=== PATIENT | female | born 1995 | race Two or more races ===

== ENCOUNTER 2021-09-26 21:19 | Emergency (ER) | payer OTHER ==
[~2021-09-26] VITALS: Ht 167.6 cm; Wt 85.7 kg
[2021-09-26] MEDS ORDERED: ZOFRAN8 MG PO (21:27)
[2021-09-26] MEDS ORDERED: PRENA1 CHEW TA1.4 MG PO (21:27)
== END 2021-09-26 23:49 | disposition home or self-care (01) ==
LOC: ER 21:19
DX: J06.9 Acute upper respiratory infection, unspecified (principal); Z20.822 Contact with and (suspected) exposure to COVID-19

== ENCOUNTER 2022-01-27 09:30 | Outpatient (CLI) | payer OTHER ==
[~2022-01-27 09:30] MED LIST: PRENA1 CHEW TA1.4 MG PO; ZOFRAN8 MG PO
== END 2022-01-27 14:09 | disposition home or self-care (01) ==
LOC: OBS/DEL 09:30
PROVIDERS: ATTEND Specialist
DX: O36.5930 Maternal care for other known or suspected poor fetal growth, third trimester, not applicable or unspecified (principal); O26.893 Other specified pregnancy related conditions, third trimester; O36.8130 Decreased fetal movements, third trimester, not applicable or unspecified; O26.843 Uterine size-date discrepancy, third trimester; Z3A.32 32 weeks gestation of pregnancy

== ENCOUNTER 2024-04-07 10:00 | Inpatient (IN) | payer OTHER ==
[~2024-04-07] VITALS: Ht 167.6 cm; Wt 2.3 kg
[~2024-04-07 10:00] MED LIST changes: +IRON240 MG PO
[2024-04-07 10:46] LABS: HEMATOCRIT 34.2 % (36.0-45.00); HEMOGLOBIN 11.3 g/dL (12.0-15.00); MEAN CELL VOLUME 88.9 fL (80.00-100.00); MEAN CORPUSCULAR HEMOGLOBIN 29.4 pg (27.00-32.0); MEAN CORPUSCULAR HGB CONC 33.1 g/dl (32.0-36.0); PLATELET COUNT 181 K/uL (150-450); RED BLOOD COUNT 3.85 M/uL (4.00-6.00); RED CELL DISTRIBUTION WIDTH 14.7 % (11.5-14.5)
[2024-04-07 10:52] LABS: URINE APPEARANCE Cloudy; URINE BILIRRUBIN Negative (NEGATIVE); URINE BLOOD Negative; URINE COLOR Yellow; URINE GLUCOSE Negative (NEGATIVE); URINE KETONE Negative (NEGATIVE); URINE LEUKOCYTE Large; URINE NITRATE Negative; URINE PROTEIN Negative (NEGATIVE); URINE UROBILINOGEN 0.2 E.U./dl
[2024-04-07 10:56] LABS: URINE BACTERIA 5418.5 uL (0.0-1933); URINE RBC 2.2 uL (0.0-20.8); URINE WBC 70.1 uL (0.0-23.2)
[2024-04-07 11:07] LABS: URINE CAST 0.44 uL (0.0-1.40)
[2024-04-07 11:08] LABS: URINE CRYSTALS FEW /HPF
[2024-04-07 11:12] LABS: INR 0.94; PARTIAL THROMBOPLASTIN TIME 27.5 SECONDS (22.0-34.0); PROTHROMBIN TIME 10.3 SECONDS (9.0-11.5)
[2024-04-07 11:53] LABS: ALBUMIN 2.9 gm/dL (3.4-5.0); BILIRUBIN TOTAL 0.31 mg/dL (0.3-1.2); CALCIUM 9.4 mg/dL (8.5-10.1); CREATININE SERUM 0.51 mg/dL (0.55-1.02); GFR 143.59; GLOBULINA 3.9 G/DL (2.4-3.5); POTASSIUM 3.92 mEq/L (3.5-5.1); TOTAL PROTEIN 6.8 gm/dL (6.4-8.2)
[2024-04-11 13:28] VITALS: BP 120/78
[2024-04-11] MEDS ORDERED: CEFAZOLIN SODIUM 1,000 MG VIAL IV ONE (22:15)
[2024-04-11] MEDS ORDERED: MORPHINE SULFATE 4 MG/ML VIAL IV ONE ×2 (22:20→22:50)
[2024-04-11] MEDS ORDERED: KETOROLAC TROMETHAMINE 60 MG VIAL IM ONE (23:45)
[2024-04-11] MEDS ORDERED: MEPERIDINE HCL/PF 50 MG/ML VIAL IV SCH (23:45)
[2024-04-11] MEDS ORDERED: PROMETHAZINE HCL 25 MG/ML AMPUL IV SCH (23:45)
[2024-04-12 02:12] LABS: HEMATOCRIT 35.4 % (36.0-45.00); HEMOGLOBIN 11.7 g/dL (12.0-15.00); MEAN CELL VOLUME 88.1 fL (80.00-100.00); MEAN CORPUSCULAR HEMOGLOBIN 29.2 pg (27.00-32.0); MEAN CORPUSCULAR HGB CONC 33.2 g/dl (32.0-36.0); PLATELET COUNT 179 K/uL (150-450); RED BLOOD COUNT 4.01 M/uL (4.00-6.00); RED CELL DISTRIBUTION WIDTH 14.7 % (11.5-14.5)
[2024-04-12 02:20] VITALS: BP 129/80
[2024-04-12] MEDS ORDERED: OxyCODONE HCL/APAP UD (PERCOCET) PO SCH ×2 (07:00→13:00)
[2024-04-12] MEDS ORDERED: FF) RHO(D) IMMUNE GLOBULIN (POM) IM ONE (08:00)
[2024-04-12] MEDS ORDERED: SIMETHICONE 125 MG CAPSULE PO SCH (09:00)
[2024-04-12] MEDS ORDERED: DOCUSATE CALCIUM 240 MG CAPSULE PO SCH (09:00)
[2024-04-12 12:05] VITALS: BP 125/74
[2024-04-12 16:13] VITALS: BP 128/85
[2024-04-12] MEDS ORDERED: IBUprofen 800 MG TABLET PO SCH (16:56)
[2024-04-13 01:13] VITALS: BP 129/80
[2024-04-13] MEDS ORDERED: SURFAK240 M1 PO (08:07)
[2024-04-13] MEDS ORDERED: IBU800 MG PO (08:07)
[2024-04-13] MEDS ORDERED: SIMETHICONE125 M1 PO (08:08)
[2024-04-13 08:21] VITALS: BP 117/83
== END 2024-04-13 13:05 | disposition home or self-care (01) | DRG 785 ==
LOC: OB/GYN 04-11 10:00 → O/R 04-11 14:59 → OB/GYN 04-11 14:59
PROVIDERS: ADMIT Specialist; ATTEND Specialist
PROC: 0UB70ZZ Excision of Bilateral Fallopian Tubes, Open Approach (ICD-10-PCS; 2024-04-11)
PROC: 4A1HXCZ Monitoring of Products of Conception, Cardiac Rate, External Approach (ICD-10-PCS; 2024-04-11)
PROC: 10D00Z1 Extraction of Products of Conception, Low, Open Approach (ICD-10-PCS; principal; 2024-04-11 11:00)
DX: O34.211 Maternal care for low transverse scar from previous cesarean delivery (principal); Z3A.38 38 weeks gestation of pregnancy; Z37.0 Single live birth; Z20.822 Contact with and (suspected) exposure to COVID-19; Z30.2 Encounter for sterilization